=== PATIENT | female | born 1995 | race Caucasian/White ===

== ENCOUNTER → 2019-09-20 00:01 | Outpatient (BNVA) | payer MEDICAID, SELFPAY | PROVIDERS: Visit Provider Nurse Practitioner Family | DX: M25.522 Pain in left elbow (principal) | CPT/HCPCS: 73060 ==

== ENCOUNTER → 2020-08-05 14:05 | Outpatient (BNVA) | payer MEDICAID, SELFPAY | DX: M54.9 Dorsalgia, unspecified (principal); R10.9 Unspecified abdominal pain | CPT/HCPCS: 81000 ==

== ENCOUNTER 2021-08-31 07:51 | Outpatient (CLI) | payer BC, MEDICAID, SELFPAY ==
--- NOTE | 2021-08-31 08:07 | US_ITS ---
WS: [id number] TRANSABDOMINAL PELVIC ULTRASOUND HISTORY: CHRONIC ABD PAIN NAUSEA, DIARRHEA UNDERWEIGHT COMPARISON: None available. Uterus: 9.7 cm x 5.2 cm x 4.6 cm. Normal size and echogenicity. No fibroids are identified. Endometrium: 0.9 cm. Normal homogeneity and size. Right ovary: 2.6 cm x 1.6 cm x 1.6 cm; no solid or cystic mass. Several small follicles. Normal vascu larity. Left ovary: 2.2 cm x 1.5 cm x 1.1 cm; no solid or cystic mass. Multiple small follicles. Normal vascu larity. No free fluid in the cul-de-sac. US/US pelvic complete* [id number] IMPRESSION: Unremarkable transabdominal pelvic ultrasound.
--- NOTE | 2021-08-31 08:07 | US_ITS ---
WS: [id number] Complete ABDOMINAL ULTRASOUND HISTORY: CHRONIC ABDOMINAL PAIN DIARRHEA/CHRONIC NAUSEA/UNDERWEIGHT COMPARISON: None available. Liver: 13.5 cm in length. Liver is normal size and echogenicity with no mass or intrahepatic dilatati on. Portal Vein: Normal hepatopetal flow with monophasic waveform. Gallbladder: Prior cholecystectomy. Pancreas: Normal size and echogenicity. CBD: 0.2 cm. Right kidney: 9.4 cm x 4.6 cm x 3.0 cm. No mass, cortical thickening or hydronephrosis. Left kidney: 9.9 cm x 4.5 cm x 3.2 cm. No mass, cortical thickening or hydronephrosis. Spleen: Normal size and echogenicity. Abdominal aorta and IVC are within normal limits. No ascites. US/US abdomen complete* [id number] IMPRESSION: 1. Prior cholecystectomy. 2. Remaining abdomen ultrasound is negative.
== END 2021-08-31 07:52 | disposition home or self-care (01) ==
LOC: RAD 08:02
PROVIDERS: PCP Nurse Practitioner Family; Visit Provider Nurse Practitioner Family
DX: R10.9 Unspecified abdominal pain (principal); R11.0 Nausea; R19.7 Diarrhea, unspecified; Z90.49 Acquired absence of other specified parts of digestive tract
CPT/HCPCS: 76700; 76856

== ENCOUNTER 2022-05-20 08:49 | Outpatient (CLI) | payer BC, MEDICAID, SELFPAY ==
--- NOTE | 2022-05-20 09:30 | XR_ITS ---
WS: [id number] Cervical spine, 4 views, 05/20/2022 Clinical Data: BACK PAIN/HX OF CHRONIC HEADACHE Comparison: None. Findings: No compression fractures are seen. The disc heights are normal. There is no prevertebral so ft tissue swelling. The odontoid is unremarkable. The soft tissues of the neck and the lung apices ar e normal. XR/XR cervical spine 3V* [id number] Impression: Negative cervical spine.
--- NOTE | 2022-05-20 09:30 | XR_ITS ---
WS: [id number] Thoracic spine, 2 views, 05/20/2022 Clinical Data: BACK PAIN/SCOLIOSIS/HX OFCHRONIC HEADACHE Comparison: None. Findings: No compression fractures are seen. The disc heights are normal. There is a prominent dextroscoliosis of the thoracic vertebral bodies. The paravertebral regions are normal. XR/XR thoracic spine 2V [id number] Impression: Dextroscoliosis of the thoracic spine.
--- NOTE | 2022-05-20 09:37 | XR_ITS ---
WS: [id number] Lumbar spine, 3 views, 05/20/2022 Clinical Data: BACK PAIN/SCOLIOSIS/HX OF CHRONIC HEADACHE Comparison: None. Findings: No compression fractures or subluxation is seen. No disc space narrowing is seen. The transverse proc esses and SI joints are normal. There is a levorotoscoliosis of the lumbar spine. There are surgical clips in the right upper quadran t from a cholecystectomy. XR/XR lumbar spine 2-3V* [id number] Impression: Levoscoliosis of the lumbar spine.
== END 2022-05-20 08:50 | disposition home or self-care (01) ==
PROVIDERS: PCP Nurse Practitioner Family; Visit Provider Nurse Practitioner Family
DX: M54.2 Cervicalgia (principal); Z87.898 Personal history of other specified conditions; M54.50 Low back pain, unspecified; M54.6 Pain in thoracic spine; M41.86 Other forms of scoliosis, lumbar region; M41.84 Other forms of scoliosis, thoracic region
CPT/HCPCS: 72040; 72070; 72100

== ENCOUNTER 2023-02-09 09:41 | Outpatient (CLI) | payer BC, MEDICAID, SELFPAY ==
--- NOTE | 2023-02-09 09:57 | NM_ITS ---
WS: [id number] NUCLEAR MEDICINE GASTRIC STUDY CLINICAL INFORMATION: EARLY SATIETY TECHNIQUE: Following oral ingestion of cooked egg mixed with 1.04 mCi technetium 99m sulfur colloid, anterior images of the stomach were obtained over the course of 90 minutes. Activity curve was perfor med over the course of 90 minutes with linear regression analysis. COMPARISON: None. FINDINGS: Oral ingestion of cooked egg mixed with 1.04 mCi technetium 99m sulfur colloid. Only 9% gastric emptying at 1 hour. 28% gastric emptying at 2 hours. T1 half gastric emptying 210 minutes NM/[place] [id number] IMPRESSION: Markedly delayed gastric emptying. Only 28% emptying at 2 hours. *Normal median T1 half 90 minutes for solid egg meal (45-110 minutes). Delayed gastric retention is defined as 90% retained at 1 hour, 60% at 2 hour s, 30% at 3 hours, and 10% at 4 hours (normal percent gastric retention is 37-9 0% at 1 hour, 30-60% at 2 hours, and 0-10% at 4 hours).
== END 2023-02-09 09:42 | disposition home or self-care (01) ==
LOC: RAD 09:42
PROVIDERS: PCP Nurse Practitioner Family; Visit Provider Family Medicine
DX: K30 Functional dyspepsia (principal); R63.0 Anorexia; R68.81 Early satiety
CPT/HCPCS: 78264; A9541